=== PATIENT | female | born 1955 | race Caucasian/White ===

== ENCOUNTER → 2020-10-13 | Outpatient (CLI) | payer MEDICARE, OTHER ==
[~2020-10-13] MED LIST: ABILIFY20 MG PO; ALBUTEROL NEB INH; ASPIRIN EC81 MG PO; ATROVENT NEB INH; BUSPAR 10MG10 MG PO; CEFTIN250 MG/5 M PO; CLARITIN10 MG PO; CORDARONE 200M200 MG PO; COREG 12.5MG12.5 MG PO; DIAMOX 250 MG250 MG PO; DITROPAN 5 MG TA5 MG PO; ENTRESTO 49 MG1 EACH PO; IMDUR ER TAB 3030 MG PO; K-DUR TAB 20 M20 MEQ PO; KEPPRA500 MG PO; LASIX40 MG PO; LEVAQUIN500 MG PO; LIORESAL TAB 1010 MG PO; LIPITOR TAB 2020 MG PO; LOPRESSOR 25 MG25 MG PO; MACROBID 100 M100 MG PO; MINIPRES CAP 2 M2 MG PO; OMEPRAZOLE20 M1 PO; PLAVIX 75 MG TA75 MG PO; PREDNISONE10 MG PO; PROTONIX40 MG PO; PROZAC40 MG PO; XYLOCAINE 5% OI35 GM TOP; ZETIA 10 MG TAB10 MG PO
== END ==
LOC: SLEEP-COR 10:50
DX: G47.33 Obstructive sleep apnea (adult) (pediatric) (principal)
CPT/HCPCS: 95811